=== PATIENT | female | born 1990 | race Caucasian/White ===

== ENCOUNTER 2018-11-19 00:09 | Inpatient (IN) | payer MEDICAID ==
[~2018-11-19] VITALS: Ht 154.9 cm; Wt 73.0 kg
[2018-11-19] MEDS ORDERED: OXYTOCIN 30U/ 0.9% NaCL 500ML 500 ML IV ONE (00:43)
[2018-11-19] MEDS ORDERED: LACTATED RINGERS 1,000 ML IV SCH ×2 (00:43→04:58)
[2018-11-19] MEDS ORDERED: NEWBORN KIT ONE (00:58)
[2018-11-19] MEDS ORDERED: FENTANYL PF 100 MCG/2ML IVPush PRN (01:00)
[2018-11-19] MEDS ORDERED: ONDANSETRON 2MG/ML, 2ML IVPush PRN (01:00)
[2018-11-19] MEDS ORDERED: TERBUTALINE 1 MG/ML, 1ML IVPush PRN (01:00)
[2018-11-19] MEDS ORDERED: FENTANYL PF 100 MCG/2ML IV PRN (01:00)
[2018-11-19] MEDS ORDERED: D5%-LACTATED RINGERS 1,000 ML IV SCH (01:22)
[2018-11-19 01:28] LABS: BASOPHILS # (AUTO) 0.05 x10^3/uL (0-0.1); BASOPHILS % (AUTO) 1 % (0-1); EOSINOPHILS # (AUTO) 0.15 x10^3/uL (0-0.4); EOSINOPHILS % (AUTO) 2 % (1-7); LYMPHOCYTES # (AUTO) 2.01 x10^3/uL (1-3.4); LYMPHOCYTES % (AUTO) 24 % (22-44); MD NO; MEAN CORPUSCULAR HEMOGLOBIN 31.1 pg (27.0-34.8); MEAN CORPUSCULAR HGB CONC 33.7 g/dL (32.4-35.8); MONOCYTES # (AUTO) 0.71 x10^3/uL (0.2-0.8); MONOCYTES % (AUTO) 8 % (2-9); NEUTROPHILS # (AUTO) 5.59 x10^3/uL (1.8-6.8); NEUTROPHILS % (AUTO) 66 % (42-75); PLATELET COUNT 182 x10^3/uL (130-400); RED CELL DISTRIBUTION WIDTH 14.5 % (9.6-15.2)
[2018-11-19] MEDS ORDERED: MISOPROSTOL 200 MCG TABLET ONE (01:39)
[2018-11-19] MEDS ORDERED: LIDOCAINE 1%, 20ML ONE (01:39)
[2018-11-19] MEDS ORDERED: OXYTOCIN 30U/ 0.9% NaCL 500ML 500 ML ONE (01:41)
[2018-11-19] MEDS ORDERED: PLEASE ENTER HEIGHT AND WEIGHT MC SCH (02:00)
[2018-11-19] MEDS ORDERED: FENTANYL PF 100 MCG/2ML ONE (02:11)
[2018-11-19] MEDS ORDERED: FENTANYL/BUPIV./NS/PF 250 ML EPIDCONT SCH ×2 (02:28→04:58)
[2018-11-19] MEDS ORDERED: FENTANYL PF 500 MCG, BUPIVACAINE/PF 0.5%, 30ML 62.5 ML in SODIUM CHLORIDE 0.9% 177.5 ML EPIDCONT SCH ×2 (03:00→05:30)
[2018-11-19] MEDS ORDERED: LACTATED RINGERS 1,000 ML INTUTE SCH (03:30)
[2018-11-19] MEDS ORDERED: LACTATED RINGERS 1,000 ML INTUTE PRN (03:30)
[2018-11-19] MEDS ORDERED: BUPIVACAINE 0.25% ONE (04:17)
[2018-11-19] MEDS ORDERED: NALOXONE 0.4 MG/ML, 1ML IVPush PRN (05:00)
[2018-11-19] MEDS ORDERED: EPHEDRINE 50 MG/ML, 1ML IVPush PRN (05:00)
[2018-11-19] MEDS ORDERED: LACTATED RINGERS 1,000 ML IVBOLUS PRN (05:00)
[2018-11-19] MEDS: OXYTOCIN 30U/ 0.9% NaCL 500ML 500 ML IV SCH ×2 (06:54→16:54)
[2018-11-19] MEDS ORDERED: MEASLES,MUMPS&RUBELLA VACC/PF 0.5 ML SQ PRN (07:00)
[2018-11-19] MEDS ORDERED: DIPH,PERTUSS(ACELL),TET VAC/PF NC IM-VACC PRN (07:00)
[2018-11-19] MEDS ORDERED: ONDANSETRON 2MG/ML, 2ML IV PRN (07:00)
[2018-11-19] MEDS ORDERED: RHOGAM FROM BLOOD BANK 1 NOTE EA IM/IV ONE (07:00)
[2018-11-19] MEDS ORDERED: OXYcodone IR 5MG TABLET PO PRN (07:00)
[2018-11-19] MEDS ORDERED: MAGNESIUM HYDROXIDE 8%, 30ML UDC PO PRN (07:00)
[2018-11-19] MEDS ORDERED: MISOPROSTOL 200 MCG TABLET PR PRN (07:00)
[2018-11-19] MEDS ORDERED: OXYcodone/APAP 5/325MG TABLET PO PRN (07:00)
[2018-11-19] MEDS ORDERED: CALCIUM CARBONATE 500 MG TAB.CHEW PO PRN (07:00)
[2018-11-19] MEDS: PRENATAL VIT/IRON/FA 1 EACH TABLET PO SCH (09:00)
[2018-11-19 09:15] VITALS: BP 117/70
[2018-11-19 13:30] VITALS: BP 135/81
[2018-11-19 15:16] LABS: BASOPHILS # (AUTO) 0.04 x10^3/uL (0-0.1); BASOPHILS % (AUTO) 0 % (0-1); EOSINOPHILS # (AUTO) 0.04 x10^3/uL (0-0.4); EOSINOPHILS % (AUTO) 0 % (1-7); LYMPHOCYTES # (AUTO) 1.59 x10^3/uL (1-3.4); LYMPHOCYTES % (AUTO) 13 % (22-44); MD NO; MEAN CORPUSCULAR HEMOGLOBIN 30.7 pg (27.0-34.8); MEAN CORPUSCULAR HGB CONC 33.5 g/dL (32.4-35.8); MEAN CORPUSCULAR VOLUME 91.7 fL (80-100); MEAN PLATELET VOLUME 9.3 fL (7.4-10.4); MONOCYTES # (AUTO) 0.63 x10^3/uL (0.2-0.8); MONOCYTES % (AUTO) 5 % (2-9); NEUTROPHILS # (AUTO) 10.42 x10^3/uL (1.8-6.8); NEUTROPHILS % (AUTO) 82 % (42-75); PLATELET COUNT 168 x10^3/uL (130-400); RED BLOOD COUNT 3.84 x10^6/uL (3.82-5.3); RED CELL DISTRIBUTION WIDTH 14.8 % (9.6-15.2)
[2018-11-19 16:00] VITALS: BP 98/61
[2018-11-19 19:37] VITALS: BP 114/70
[2018-11-19] MEDS: IBUPROFEN 600 MG TABLET PO PRN (20:51)
[2018-11-19] MEDS: DOCUSATE 100 MG CAPSULE PO PRN (20:51)
[2018-11-20] VITALS: BP 127/76
[2018-11-20] MEDS: OXYTOCIN 30U/ 0.9% NaCL 500ML 500 ML IV SCH (02:54)
[2018-11-20 04:39] VITALS: BP 123/75
[2018-11-20] MEDS: IBUPROFEN 600 MG TABLET PO PRN (04:45)
[2018-11-20 07:50] VITALS: BP 110/73
[2018-11-20] MEDS: DOCUSATE 100 MG CAPSULE PO PRN (08:08)
[2018-11-20] MEDS: PRENATAL VIT/IRON/FA 1 EACH TABLET PO SCH (08:08)
[2018-11-20] MEDS ORDERED: IBUP-1222 PO (10:29)
== END 2018-11-20 11:05 | disposition home or self-care (01) | DRG 807 ==
LOC: LDOP 00:09 → LDIP 00:43 → 2NW 09:04
PROVIDERS: ADMIT Obstetrics & Gynecology; ATTEND Obstetrics & Gynecology
PROC: 10E0XZZ Delivery of Products of Conception, External Approach (ICD-10-PCS; principal; 2018-11-19)
PROC: 3E0R3BZ Introduction of Anesthetic Agent into Spinal Canal, Percutaneous Approach (ICD-10-PCS; 2018-11-19)
PROC: 00HU33Z Insertion of Infusion Device into Spinal Canal, Percutaneous Approach (ICD-10-PCS; 2018-11-19)
DX: O48.0 Post-term pregnancy (principal); Z37.0 Single live birth; O76 Abnormality in fetal heart rate and rhythm complicating labor and delivery; Z88.2 Allergy status to sulfonamides; Z3A.41 41 weeks gestation of pregnancy; Z80.3 Family history of malignant neoplasm of breast; Z82.49 Family history of ischemic heart disease and other diseases of the circulatory system; Z83.3 Family history of diabetes mellitus
CPT/HCPCS: 36415; J7121; 82803; 85025; 86850; 86900; G0378; J3010; J2590; J7120